=== PATIENT | female | born 1980 | race African-American/Black ===

== ENCOUNTER 2017-08-12 12:42 | Emergency (ER) | payer OTHER ==
[~2017-08-12] VITALS: Ht 162.6 cm; Wt 76.2 kg
[~2017-08-12 12:42] MED LIST: IBUP800T24 PO; SULF1TAB60 PO
[2017-08-12 13:12] VITALS: BP 154/103
[2017-08-12] MEDS ORDERED: ACETAMINOPHEN 500 MG TAB PO ONE (13:45)
[2017-08-12] MEDS ORDERED: SODIUM CHLORIDE 0.9% 1,000 ML IV ONE (14:33)
[2017-08-12] MEDS ORDERED: KETOROLAC TROMETH 30 MG/ML 1ML VIAL IV ONE (15:00)
[2017-08-12 15:22] LABS: Urine Bacteria FEW /hpf (None Seen); Urine Blood 2+ /uL (Negative); Urine Mucus FEW (None Seen); Urine Specific Gravity 1.031 (1.001-1.035); Urine WBC <1 /hpf (0 - 5)
== END 2017-08-12 15:52 | disposition home or self-care (01) ==
LOC: ER 12:42
DX: N39.0 Urinary tract infection, site not specified (principal); Z79.899 Other long term (current) drug therapy
CPT/HCPCS: 81001; 87400; 96361; 96374; 99284; J1885; J7030

== ENCOUNTER 2020-10-20 23:33 | Inpatient (IN) | payer MEDICAID, OTHER ==
[~2020-10-20] VITALS: Ht 162.6 cm; Wt 93.8 kg
[~2020-10-20 23:33] MED LIST changes: -IBUP800T24 PO; +IBUP800T27 PO
[2020-10-21] MEDS ORDERED: MORPHINE SULFATE 4 MG/ML SYR/VIAL IV ONE ×2 (00:30→02:30)
[2020-10-21] MEDS ORDERED: ONDANSETRON HCL 4 MG/2 ML VIAL IV ONE (00:30)
[2020-10-21] MEDS ORDERED: SODIUM CHLORIDE 0.9% 1,000 ML IV ONE ×2 (01:00→02:30)
[2020-10-21 01:16] LABS: Basophils # (auto) 0 10 ^3/uL (0-0.2); Basophils % (auto) 0.5 % (0.0-2.0); Eosinophils # (auto) 0.1 10 ^3/uL (0-0.8); Eosinophils % (auto) 0.9 % (0.0-7.0); Hematocrit 38.7 % (36.0-46.0); Hemoglobin 12.8 g/dL (12.2-16.2); Lymphocytes # (auto) 0.9 10 ^3/uL (0.4-5.4); Lymphocytes % (auto) 14.9 % (10.0-50.0); Mean Corpuscular Hemoglobin 29.1 pg (28.0-32.0); Monocytes # (auto) 0.7 10 ^3/uL (0-1.3); Neutrophils # (auto) 4.5 10 ^3/uL (1.6-8.6); Neutrophils % (auto) 72.7 % (37.0-80.0); Nucleated Red Blood Cells % 0.1 %; Platelet Count (auto) 287 10^3/uL (140-450); Red Blood Cells 4.39 10^6/uL (4.0-5.20); Red Cell Distribution Width 13.7 % (11.8-14.3); White Blood Cell 6.1 10^3/uL (4.4-10.8)
[2020-10-21 01:36] LABS: Albumin 3.9 g/dL (3.4-5.0); BUN/Creatinine Ratio 11.8; Calcium 8.9 mg/dL (8.5-10.1); Potassium 3.5 mmol/L (3.5-5.1)
[2020-10-21 01:39] LABS: Bilirubin, Total 0.6 mg/dL (0.2-1.0); Total Protein 8.4 g/dL (6.4-8.2)
[2020-10-21] MEDS ORDERED: KETOROLAC TROMETH 30 MG/ML 1ML VIAL IV ONE (05:00)
[2020-10-21] MEDS ORDERED: fentaNYL CITRATE 100 MCG/2 ML VL IV ONE (05:00)
[2020-10-21 05:13] LABS: Urine Bacteria FEW /hpf (None Seen); Urine Blood 2+ /uL (Negative); Urine Mucus FEW (None Seen); Urine Specific Gravity 1.015 (1.001-1.035); Urine WBC 2 /hpf (0 - 5)
[2020-10-21] MEDS ORDERED: ACETAMINOPHEN 325 MG TAB PO PRN (06:30)
[2020-10-21] MEDS ORDERED: ONDANSETRON HCL 4 MG/2 ML VIAL IV PRN (06:30)
[2020-10-21] MEDS: SODIUM CHLORIDE 0.9% 1,000 ML IV SCH ×2 (07:47→18:23)
[2020-10-21] MEDS: cefTRIAXone 1GM/50ML D5W 50 ML IV SCH (09:19)
[2020-10-21] MEDS ORDERED: ACETAMINOPHEN 500 MG TAB PO PRN (11:30)
[2020-10-21] MEDS ORDERED: hydrALAZINE HCL 20 MG/ML VL IV PRN (11:30)
[2020-10-21] MEDS ORDERED: MANNITOL 20% SOLN 100 gm/500ml 300 ML IV ONE (11:30)
[2020-10-21 12:00] VITALS: BP 130/91
[2020-10-21] MEDS ORDERED: MANNITOL FTV 25% 12.5 GM/50 ML 50 ML IV ONE (12:30)
[2020-10-21] MEDS: POTASSIUM CHL 20 Meq TABLET PO SCH ×2 (15:01→18:43)
[2020-10-21] MEDS ORDERED: AML5T PO (16:11)
[2020-10-21 16:15] VITALS: BP 163/89
[2020-10-21] MEDS ORDERED: ASCO500T11 PO (16:15)
[2020-10-21] MEDS ORDERED: PRE1T PO (16:15)
[2020-10-21] MEDS ORDERED: ELDE1SYP PO (16:15)
[2020-10-21] MEDS ORDERED: CHOL20007 PO (16:15)
[2020-10-21] MEDS ORDERED: SULF400T11 PO (16:15)
[2020-10-21] MEDS ORDERED: PREN-96 PO (16:15)
[2020-10-21 17:00] VITALS: BP 147/86
[2020-10-21] MEDS: TAMSULOSIN HYDROCHLORIDE 0.4 MG CAP PO SCH (18:23)
[2020-10-21] MEDS ORDERED: POTASSIUM CHL 20 Meq TABLET PO SCH (18:45)
[2020-10-21 22:00] VITALS: BP 142/82
[2020-10-21] MEDS: ESOMEPRAZOLE 40 MG/5ml VIAL INJ IV SCH (22:00)
[2020-10-21] MEDS ORDERED: PANTOPRAZOLE 40 MG/10 ML VIAL INJ IV SCH (22:00)
[2020-10-21] MEDS: LISINOPRIL 20 MG TAB PO SCH (23:23)
[2020-10-22] MEDS: SODIUM CHLORIDE 0.9% 1,000 ML IV SCH ×2 (04:00→13:08)
[2020-10-22 05:00] VITALS: BP 157/92
[2020-10-22] MEDS: HYDROcodone-ACET 5/325MG TAB PO PRN ×2 (05:30→13:09)
[2020-10-22 06:04] LABS: Hematocrit 35.1 % (36.0-46.0); Hemoglobin 11.7 g/dL (12.2-16.2); Mean Corpuscular Hemoglobin 29.7 pg (28.0-32.0); Mean Corpuscular Hgb Conc. 33.3 g/dL (32.0-36.0); Mean Corpuscular Volume 89.2 fL (80.0-100.0); Platelet Count (auto) 221 10^3/uL (140-450); Red Blood Cells 3.94 10^6/uL (4.0-5.20); Red Cell Distribution Width 13.2 % (11.8-14.3); White Blood Cell 3.3 10^3/uL (4.4-10.8)
[2020-10-22 06:11] LABS: Potassium 4.4 mmol/L (3.5-5.1)
[2020-10-22 06:20] LABS: Albumin 2.9 g/dL (3.4-5.0); Band Neutrophils % (manual) 0; Basophils % (manual) 0 (0.0-2.0); Bilirubin, Total 0.5 mg/dL (0.2-1.0); Blast Cells 0; Metamyelocytes % 0; Myelocytes % 0; Promyelocytes % 0; Reactive Lymphocytes 0; Total Protein 6.4 g/dL (6.4-8.2)
[2020-10-22 07:35] LABS: Eosinophils % (manual) 6 (0-7); Lymphocytes % (manual) 39 (10.0-50.0); Monocytes % (manual) 13 (0-12)
[2020-10-22] MEDS ORDERED: OMNIPAQUE ORAL SOLN 500ml 12mg/ml PO ONE (07:35)
[2020-10-22] MEDS ORDERED: IOHEXOL 300 MG/ML 100ML BOTTLE IJ ONE (07:35)
[2020-10-22 08:00] VITALS: BP 139/78
[2020-10-22] MEDS: ESOMEPRAZOLE 40 MG/5ml VIAL INJ IV SCH ×2 (11:04→22:01)
[2020-10-22] MEDS: cefTRIAXone 1GM/50ML D5W 50 ML IV SCH (11:04)
[2020-10-22] MEDS: LISINOPRIL 20 MG TAB PO SCH ×2 (11:07→22:01)
[2020-10-22] MEDS: MORPHINE SULF INJ 2 MG/ML SYRINGE 1ML IV PRN ×2 (11:08→22:14)
[2020-10-22 11:53] VITALS: BP 143/93
[2020-10-22 12:00] VITALS: BP 159/98
[2020-10-22 17:16] VITALS: BP 135/83
[2020-10-22] MEDS: TAMSULOSIN HYDROCHLORIDE 0.4 MG CAP PO SCH (17:33)
[2020-10-22 21:38] VITALS: BP 123/60
[2020-10-23] MEDS: SODIUM CHLORIDE 0.9% 1,000 ML IV SCH ×2 (01:55→08:59)
[2020-10-23 04:32] VITALS: BP 125/59
[2020-10-23] MEDS: HYDROcodone-ACET 5/325MG TAB PO PRN ×2 (06:36→17:32)
[2020-10-23 09:00] VITALS: BP 155/96
[2020-10-23] MEDS: ESOMEPRAZOLE 40 MG/5ml VIAL INJ IV SCH (10:19)
[2020-10-23] MEDS: cefTRIAXone 1GM/50ML D5W 50 ML IV SCH (10:19)
[2020-10-23] MEDS: LISINOPRIL 20 MG TAB PO SCH (10:20)
[2020-10-23] MEDS ORDERED: FUROSEMIDE 40 MG/4 ML VIAL IV ONE (11:45)
[2020-10-23] MEDS ORDERED: IBUP800T27 PO (12:24)
[2020-10-23] MEDS ORDERED: LISI-648 PO (12:24)
[2020-10-23] MEDS ORDERED: PANT40TA2 PO (12:25)
[2020-10-23 13:00] VITALS: BP 145/93
[2020-10-23 13:47] VITALS: BP 155/96
[2020-10-23] MEDS: MORPHINE SULF INJ 2 MG/ML SYRINGE 1ML IV PRN (14:43)
[2020-10-23 16:39] VITALS: BP 137/91
[2020-10-23] MEDS: TAMSULOSIN HYDROCHLORIDE 0.4 MG CAP PO SCH (18:00)
== END 2020-10-23 19:00 | disposition home or self-care (01) | DRG 463 ==
LOC: EDBD 23:33 → ER 23:33 → TELE 23:34 → TELE-CENTR 10-21 11:45
PROVIDERS: ADMIT Internal Medicine; ATTEND Internal Medicine
DX: N13.6 Pyonephrosis (principal); N83.10 Corpus luteum cyst of ovary, unspecified side; N28.89 Other specified disorders of kidney and ureter; Z20.822 Contact with and (suspected) exposure to COVID-19
CPT/HCPCS: 36415; 74018; 74176; 74177; 74181; 78707; 80053; 80061; 81001; 82150; 83605; 83690; 84702; 85007; 85025; 85027; 87086; 87426; 93005; 96361; 96365; 96375; 96376; G0378; J0696; J1885; J2405